=== PATIENT | male | born 1955 | race Two or more races ===

== ENCOUNTER 2024-08-07 05:20 | Day surgery (SDC) | payer OTHER ==
[~2024-08-07 05:20] MED LIST: LEVOTHYROXINE25 MCG PO; LIPITOR20 MG PO; LOSARTAN POTASS50 MG PO; PROSCAR5 MG PO; RAPAFLO8 MG PO
[2024-08-07] MEDS ORDERED: CEFTRIAXONE SODIUM 2,000 MG VIAL ONE ×2 (07:41→08:35)
[2024-08-07] MEDS ORDERED: METRONIDAZOLE/SODIUM CHLORIDE 500 MG/100 ML PIGGYBACK IV ONE ×2 (07:41→08:35)
[2024-08-07] MEDS ORDERED: POVIDONE-IODINE 118 ML BOTT TOP ONE (08:35)
[2024-08-07] MEDS ORDERED: DIBUCAINE 30 GM TUBE ONE (08:35)
[2024-08-07] MEDS ORDERED: HEMOSTATIC MATRIX 1 KIT KIT TOP ONE (08:35)
[2024-08-07] MEDS ORDERED: TRAM1TAB98 PO (09:59)
[2024-08-07] MEDS ORDERED: COLACE100 MG PO (09:59)
== END 2024-08-07 11:40 | disposition home or self-care (01) ==
LOC: CIR.AMB 05:20
PROVIDERS: ATTEND Surgery
DX: K60.321 Anal fistula, complex, initial (principal); K60.311 Anal fistula, simple, initial; K52.89 Other specified noninfective gastroenteritis and colitis; I10 Essential (primary) hypertension; Z91.012 Allergy to eggs

== ENCOUNTER 2025-01-08 08:00 | Day surgery (SDC) | payer OTHER ==
[2025-01-04 12:24] VITALS: BP 132/79
[~2025-01-08] VITALS: Ht 170.2 cm; Wt 83.9 kg
[~2025-01-08 08:00] MED LIST changes: +COLACE100 MG PO; +TRAM1TAB98 PO
[2025-01-08] MEDS ORDERED: BUPIVACAINE HCL/MPF 0.5% 30ML VIAL ONE (10:02)
[2025-01-08] MEDS ORDERED: DIBUCAINE 30 GM TUBE ONE (10:02)
[2025-01-08] MEDS ORDERED: HEMOSTATIC MATRIX 1 KIT KIT TOP ONE ×2 (10:02→12:00)
[2025-01-08] MEDS ORDERED: LIDOCAINE HCL 1%/EPINEPHRINE 20ML VIAL IJ ONE ×2 (10:03→12:00)
[2025-01-08] MEDS ORDERED: CEFTRIAXONE SODIUM 2,000 MG VIAL ONE (10:05)
[2025-01-08] MEDS ORDERED: METRONIDAZOLE/SODIUM CHLORIDE 500 MG/100 ML PIGGYBACK IV ONE ×2 (10:05→11:45)
[2025-01-08] MEDS ORDERED: CEFTRIAXONE SODIUM 2,000 MG VIAL IV ONE (11:45)
[2025-01-08] MEDS ORDERED: DIBUCAINE 15 GM OINT..GM. TUBE RECTAL SCH (12:00)
[2025-01-08] MEDS ORDERED: BUPIVACAINE HCL 30 ML VIAL IJ ONE (12:00)
[2025-01-08] MEDS ORDERED: POVIDONE-IODINE 118 ML BOTT TOP ONE (12:00)
[2025-01-08] MEDS ORDERED: TRAM1TAB98 PO (14:28)
[2025-01-08] MEDS ORDERED: AMOX-CLAV 875-1 EACH PO (14:28)
[2025-01-08] MEDS ORDERED: NEURONTIN300 MG PO (14:28)
== END 2025-01-08 17:10 | disposition home or self-care (01) ==
LOC: CIR.AMB 08:00
PROVIDERS: ATTEND Surgery
DX: K60.321 Anal fistula, complex, initial (principal); K62.89 Other specified diseases of anus and rectum; Z91.012 Allergy to eggs